=== PATIENT | male | born 1985 | race Caucasian/White ===

== ENCOUNTER 2018-08-07 03:35 | Emergency (ER) | payer OTHER ==
--- NOTE | 2018-08-07 03:46 | EDPHY ---
H & P Stated Complaint: Lip Lac Time Seen by Provider: 08/07/18 03:46 HPI/ROS: HPI CHIEF COMPLAINT: Syncope, lip laceration. HISTORY OF PRESENT ILLNESS: Patient is a 33-year-old male, resides in [place], here visiting his brother for a bachelor at [employer]. He staying up in [place]. He drinks 6-7 beers tonight. He was getting ready for bed. He was in the bathroom and was urinating. While using the bathroom he felt lightheaded. He has a history of vasovagal syncope. Patient states he has had syncopal episodes for other times. He felt coming on. He states when he has this he is post lay down. He went to go lay down however had a syncopal episode he fell forward with striking his face against a light switch. Sustained a through and through left lower lip laceration. No other areas of injury. Patient reports tetanus shot up-to-date. Past Medical History: Denies other significant medical history except for vasovagal syncope. Past Surgical History: No recent surgical history Social History: Resides in [place]. Here for a bachelor [employer] Family History: Noncontributory ROS REVIEW OF SYSTEMS: 10 Systems were reviewed and negative with the exception of the elements mentioned in the history of present illness. Exam Constitutional appears well nontoxic no acute distress, vital signs stable, triage nursing summary reviewed, vital signs reviewed, awake/alert. Eyes normal conjunctivae and sclera, EOMI, PERRLA. HENT oropharynx left lower lip laceration 2 cm through and through, does not involve the vermilion border, otherwise midface stable, otherwise atraumatic head and neck exam, normal inspection, atraumatic, moist mucus membranes, no epistaxis, neck supple/ no meningismus, no raccoon eyes. Respiratory clear to auscultation bilaterally, normal breath sounds, no respiratory distress, no wheezing. Cardiovascular rate normal, regular rhythm, no murmur, no edema, distal pulses normal. Gastrointestinal soft, non-tender, no rebound, no guarding, normal bowel sounds, no distension, no pulsatile mass. Genitourinary no CVA tenderness. Musculoskeletal no midline vertebral tenderness, full range of motion, no calf swelling, no tenderness of extremities, no meningismus, good pulses, neurovascularly intact. Skin pink, warm, & dry, no rash, skin atraumatic. Neurologic awake, alert and oriented x 3, AAOx3, moves all 4 extremities equally, motor intact, sensory intact, CN II-XII intact, normal cerebellar, normal vision, normal speech. Psychiatric normal mood/affect. Heme/Lymph/Immune no lymphadenopathy. Differential Diagnosis: Includes but is not limited to in a particular order vasovagal syncope, dehydration, electrolyte disturbance, cardiac arrhythmia Medical Decision Making: Plan for patient IV establishment, IV fluid bolus, EKG , basic labs, electrolytes, troponin. Patient need his lip laceration repaired. Re-evaluation: EKG interpretation by me on record in [facility] system. Impression time of EKG 3:54 a.m., sinus rhythm rate of 84, appear interval noted to be 203. Old otherwise no signs of WPW or Brugada. No signs of acute ischemia the EKG. Laceration Repair Procedure: Verbal Consent was obtained, Under sterile conditions, The patient had lidocaine with epinephrine used approximately 4ccs to local anesthetize the Left Lower lip 2CM lip Laceration. The wound was copiously irrigated with sterile fluid, the wound was explored for foreign bodies there were none visualized, the wound was explored with a sterile glove to the base. There are no deep structures involved, including no arterial injury. TWO 5.O absorbable interrupted Sutures were placed in this patient's laceration. He had good close approximation of the wound edges. He Tolerated this well. Patient understands do gentle rinses. Patient understands the sutures dissolve on their own. Watch for signs of infection Return to the emergency room if worsening symptoms questions or concerns. 7:00 a.m. Patient re-evaluated resting comfortably no acute distress. Ambulated well throughout the emergency room. Not feel dizzy or lightheaded denies chest pain or shortness of breath. Troponin noted be negative. EKG nonischemic. Intervals are appropriate except for MD interval 203. He has a history of vasovagal syncope. I believe this is what happened to him. I encouraged him to stay well-hydrated drink lots of fluids. Refrain from drinking large amounts of alcohol. Return emergency room if there is worsening symptoms questions or concerns. Source: Patient - Personal History Current Tetanus/Diphtheria Vaccine: Yes Current Tetanus Diphtheria and Acellular Pertussis (TDAP): Yes - Medical/Surgical History Hx Asthma: No Hx Chronic Respiratory Disease: No Hx Diabetes: No Hx Cardiac Disease: No Hx Renal Disease: No Hx Cirrhosis: No Hx Alcoholism: No Hx HIV/AIDS: No Hx Splenectomy or Spleen Trauma: No Other PMH: vasovagal syncope - Social History Smoking Status: Never smoked Constitutional: Initial Vital Signs Temperature (C) 36.6 C 08/07/18 03:38 Heart Rate 90 08/07/18 03:38 Respiratory Rate 18 08/07/18 03:38 Blood Pressure 142/85 H 08/07/18 03:38 O2 Sat (%) 93 08/07/18 03:38 O2 Delivery Mode Room Air Allergies/Adverse Reactions: No Known Allergies Allergy (Unverified 08/07/18 03:38) Home Medications: Medication Instructions Recorded NK [No Known Home Meds] 08/07/18 Medical Decision Making - Data Points Laboratory Results: Laboratory Results 08/07/18 03:56 08/07/18 03:56 08/07/18 08/07/18 08/07/18 04:04 03:56 03:56 WBC 6.38 10^3/uL 10^3/uL (3.80-9.50) RBC 5.35 10^6/uL 10^6/uL (4.40-6.38) Hgb 15.3 g/dL g/dL (13.7-17.5) Hct 44.1 % % (40.0-51.0) MCV 82.4 fL fL (81.5-99.8) MCH 28.6 pg pg (27.9-34.1) MCHC 34.7 g/dL g/dL (32.4-36.7) RDW 11.9 % % (11.5-15.2) Plt Count 209 10^3/uL 10^3/uL (150-400) MPV 10.4 fL fL (8.7-11.7) Neut % (Auto) 56.6 % % (39.3-74.2) Lymph % (Auto) 29.6 % % (15.0-45.0) Baxter % (Auto) 10.5 % % (4.5-13.0) Eos % (Auto) 1.9 % % (0.6-7.6) Baso % (Auto) 1.1 % % (0.3-1.7) Nucleat RBC Rel Count 0.0 % % (0.0-0.2) Absolute Neuts (auto) 3.61 10^3/uL 10^3/uL (1.70-6.50) Absolute Lymphs (auto) 1.89 10^3/uL 10^3/uL (1.00-3.00) Absolute Monos (auto) 0.67 10^3/uL 10^3/uL (0.30-0.80) Absolute Eos (auto) 0.12 10^3/uL 10^3/uL (0.03-0.40) Absolute Basos (auto) 0.07 10^3/uL 10^3/uL (0.02-0.10) Absolute Nucleated RBC 0.00 10^3/uL 10^3/uL (0-0.01) Immature Gran % 0.3 % % (0.0-1.1) Immature Gran # 0.02 10^3/uL 10^3/uL (0.00-0.10) Sodium 138 mEq/L mEq/L (135-145) Potassium 3.6 mEq/L mEq/L (3.5-5.2) Chloride 103 mEq/L mEq/L (97-110) Carbon Dioxide 25 mEq/l mEq/l (22-31) Anion Gap 10 mEq/L mEq/L (6-14) BUN 16 mg/dL mg/dL (7-23) Creatinine 0.9 mg/dL mg/dL (0.7-1.3) Estimated GFR > 60 Glucose 97 mg/dL mg/dL (70-100) Calcium 9.3 mg/dL mg/dL (8.5-10.4) POC Troponin I 0.04 ng/mL ng/mL (0.00-0.08) Medications Given: Discontinued Medications Sodium Chloride (Ns) 2,000 mls @ 0 mls/hr IV EDNOW ONE; Wide Open PRN Reason: Protocol Stop: 08/07/18 03:52 Last Admin: 08/07/18 03:58 Dose: 2,000 mls Point of Care Test Results: Chemistry 08/07/18 04:04 POC Troponin I 0.04 ng/mL ng/mL (0.00-0.08) Departure - Departure Disposition: Home, Routine, Self-Care Clinical Impression: Vasovagal syncope Condition: Good Instructions: Care For Your Stitches (ED), Laceration (ED), Syncope (ED) Additional Instructions: 1. Stay well-hydrated drink lots of fluids. 2. Return to the emergency room if worsening symptoms questions or concerns. Referrals: KAZ SIFUENTES DR [Other] - As per Instructions
[2018-08-07] MEDS ORDERED: NS 2,000 ML IV ONE (03:51)
[2018-08-07 04:13] LABS: PLATELET COUNT 209 10^3/uL (150-400)
[2018-08-07 06:18] VITALS: BP 145/90
--- NOTE | 2018-08-09 06:31 | CPEKG ---
Test Reason : OPEN Blood Pressure : / mmHG Vent. Rate : 084 BPM Atrial Rate : 085 BPM P-R Int : 203 ms QRS Dur : 091 ms QT Int : 385 ms P-R-T Axes : 046 060 059 degrees QTc Int : 456 ms Sinus rhythm Borderline prolonged MD interval Confirmed by Anibal Monsalve ([id number]) on 08/09/2018 6:31:11 AM Referred By: Anibal Monsalve Confirmed By:Anibal Monsalve
== END 2018-08-07 07:00 | disposition home or self-care (01) ==
PROC: 0CQ1XZZ Repair Lower Lip, External Approach (ICD-10-PCS; principal; 2018-08-07)
DX: R55 Syncope and collapse (principal); W22.8XXA Striking against or struck by other objects, initial encounter; Y92.003 Bedroom of unspecified non-institutional (private) residence as the place of occurrence of the external cause; E86.9 Volume depletion, unspecified
CPT/HCPCS: 84484-ER